=== PATIENT | female | born 2000 | race Caucasian/White ===

== ENCOUNTER 2024-07-28 13:55 | Outpatient (AMB) | payer MEDICAID, SELFPAY ==
[2024-07-28 14:04] VITALS: BP 115/74; PULSE 64; RESP 16; TEMP 36.8; O2SAT 97; BMI 30.3
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
== END 2024-07-28 14:51 | disposition home or self-care (01) ==
LOC: HODAHC 13:55
PROVIDERS: PCP Family Medicine; Referring Provider Family Medicine; Supervising Provider Internal Medicine; Visit Provider Student in an Organized Health Care Education/Training Program
DX: N91.2 Amenorrhea, unspecified (principal); R05.9 Cough, unspecified
CPT/HCPCS: 99213; G0463